=== PATIENT | female | born 1990 | race Caucasian/White ===

== ENCOUNTER → 2016-07-27 | Outpatient (CLI) | payer BC ==
[~2016-07-27] MED LIST: MULT-806 PO
--- NOTE | 2016-07-27 16:45 | DI ---
Indication: ITS.REASON: Z34.90 NORMAL PREG. PROCEDURE: US OB COMPLETE >/= 14WKS: Encounter: Initial Age by first ultrasound is 18 weeks and 3 days based on an VANDANA of December 25, 2016. Comparison: May 20, 2016 PROCEDURE: US OB COMPLETE >/= 14WKS: Technique: Grayscale and color Doppler transabdominal sonographic imaging was performed. Findings: There is a single living intrauterine gestation in breech lie. Placenta is anterior without previa. Quantity of amniotic fluid is normal. The cervix is normal length and closed. Amniotic fluid index is normal at 13.4 cm. Largest vertical pocket in the right upper quadrant is 5.5 cm. Survey of anatomy, including lateral ventricles, cavum septum, posterior fossa, spine, four chamber view of the heart, stomach, kidneys, bladder, and three vessel orthotopic cord insertion are normal. In addition, all long bones in both upper and lower extremities and both hands and feet are present. Coronal view of the nose and lips and sagittal facial profile are unremarkable. heart beats regularly at 138 beats per minute. biometry: Biparietal diameter: 4.33 cm 19 weeks and 1 days (79 percentile). Head circumference: 15.63 cm 18 weeks and 4 days (49 percentile). Abdominal circumference: 13.42 cm 19 weeks and 0 days (63 percentile). Femur Length: 2.80 cm 18 weeks and 4 days (50 percentile). biometrics are internally concordant and consistent with an estimated gestational age of 18 weeks and 6 days. Estimated weight is 255 grams (65 percentile by first ultrasound and 38 percentile by AUA method). Impression: 1. Single living intrauterine gestation with age by first ultrasound of 18 weeks and 3 days. This is based on an VANDANA of December 25, 2016. 2. Best estimate of gestational age on today's exam is 18 weeks and 6 days, correlating to an VANDANA of December 22, 2016. 3. Normal survey of anatomy. .
== END ==
LOC: IMA 15:16
PROVIDERS: ATTEND Family Medicine
DX: Z34.90 Encounter for supervision of normal pregnancy, unspecified, unspecified trimester (principal)

== ENCOUNTER 2016-12-08 06:00 | Inpatient (IN) ==
[2016-12-08] MEDS ORDERED: CALCIUM CARBONATE Chewable 500mg TABLET PO PRN ×2 (06:07→20:33)
[2016-12-08] MEDS ORDERED: ACETAMINOPHEN 500 MG TABLET PO PRN ×2 (06:07→20:33)
[2016-12-08] MEDS ORDERED: OXYTOCIN DRIP 30 UNIT/500 ML ML IV PRN (06:07)
[2016-12-08] MEDS ORDERED: METHYLERGONOVINE 0.2 MG/ML INJECTION IM PRN (06:07)
[2016-12-08] MEDS ORDERED: LIDOCAINE 1% (10mg/ml) 2mL INJ PF SDV ID PRN (06:07)
[2016-12-08] MEDS ORDERED: CARBOPROST 250 MCG/ML INJECTION IM PRN (06:07)
[2016-12-08] MEDS ORDERED: MAG-AL + SIM ORAL LIQUID 30ml PO PRN (06:07)
[2016-12-08] MEDS: D5LR 1,000 ML IV PRN ×2 (06:46→19:27)
[2016-12-08 06:49] VITALS: BMI 37.0
--- NOTE | 2016-12-08 07:51 | Anesthesia Preoperative Report ---
Anesthesia Epidural/Spinal Rec - Date and Time Date: 12/08/16 Preoperative Diagnosis: G1, P0, 37+4 Procedure: Labor Epidural Plan: Epidural - Vital Signs Vital Signs: Temperature 98.1 F 12/08/16 06:41 Pulse Rate 92 12/08/16 06:41 Respiratory Rate 18 12/08/16 06:41 Blood Pressure 126/84 12/08/16 06:41 Pulse Oximetry 98 12/08/16 06:41 NPO since: mn /Para: P:0 Heart Rate: 135 - Medictaions & Allergies Inpatient Medications: Current Medications Acetaminophen (Tylenol) 500 - 1,000 mg PO Q4H PRN PRN Reason: Pain Al Hydroxide/Mg Hydroxide (Maalox Plus) 30 ml PO Q3H PRN PRN Reason: Indigestion Calcium Carbonate (Tums) 500 - 1,000 mg PO Q2H PRN PRN Reason: Indigestion Carboprost Tromethamine (Hemabate) 250 mcg IM O PRN PRN Reason: .Downtime Oxytocin (Pitocin Drip) 30 unit in 500 mls @ 2 mls/hr IV .Q24H PRN; Protocol PRN Reason: Induction/Augmentation Dextrose/Lactated Ringer's (Dextrose 5%-Lactated Ringers) 1,000 mls @ 125 mls/ hr IV .Q8H PRN PRN Reason: Labor Lidocaine HCl (Xylocaine-Mpf 1% Vial) 0.2 mg ID O PRN PRN Reason: IV Start Methylergonovine Maleate (Methergine) 0.2 mg IM O PRN Misoprostol (Cytotec) 800 mcg RI ONCE PRN Allergies/Adverse Reactions: Allergies Allergy/AdvReac Type Severity Reaction Status Date / Time No Known Allergies Allergy Unknown Verified 01/18/08 08:19 - Home Medications Home Medications: Home Medications Medication Instructions Recorded Confirmed Type Benadryl 11/29/16 History Vitamins 11/29/16 History Tylenol 11/29/16 History - Medical History Other History: Reports: Other (wakes up emotional ) - Surgical History Surgery/Treatment: REPORT: Other (cystoscopy ) Anesthesia Reactions: Confusion Hx Family Anesthesia Reaction: No - Pertinent Findings Lab Data: CBC and BMP 12/08/16 06:26 - Physical Exam Respiratory Exam: lungs clear, bilateral breath sounds equal Cardiovascular Exam: regular rate and rhythm - Airway Assessment Mallampati Score: IV TMD: 2 Fingerbreadths Neck Extension: fair Overall Assessment: may be difficult intubation - ASA ASA Score: 2 - Discussion Discussion: Discussed risks/options/alternatives of anesthesia and questions answered. Patient consents. Nursing pain assessment noted. Attestation Statement: Prior to the delivery of any anesthetic medication, I examined the patient, developed the plan, obtained the patient's consent and discussed the risk and benefits of the procedure with the patient/guardian.
[2016-12-08] MEDS ORDERED: LR 1,000 ML IV SCH (08:30)
[2016-12-08] MEDS: LR 1,000 ML IV PRN ×2 (09:55→11:56)
[2016-12-08] MEDS ORDERED: ROPIVACAINE 1% 10MG/ML INJ 200 MG, SUFentanil 50 MCG in NS 100 ML EPI PRN (10:53)
[2016-12-08] MEDS ORDERED: DiphenhydrAMINE 50 MG/ML INJECTION IVP PRN (10:53)
[2016-12-08] MEDS ORDERED: ONDANSETRON 4 MG/2 ML INJECTION IVP PRN ×2 (10:53→18:04)
[2016-12-08] MEDS ORDERED: NALOXONE 0.4 MG/ML INJECTION IVP PRN (10:53)
[2016-12-08] MEDS ORDERED: LR 1,000 ML IV PRN (11:05)
[2016-12-08] MEDS ORDERED: FAMOTIDINE PB 20 MG/50 ML BAG IV ONE (17:19)
[2016-12-08] MEDS ORDERED: CITRIC ACID/SODIUM CITRATE 30ml PO ONE (17:19)
[2016-12-08] MEDS ORDERED: CEFAZOLIN PREMIX (MC ONLY) 2 GM/50 ML BAG IV ONE (17:19)
[2016-12-08] MEDS ORDERED: MORPHINE SULFATE PF 5mg/10ml INJ (Duramorph) ONE (17:27)
[2016-12-08] MEDS ORDERED: FentaNYL 100 MCG/2 ML INJECTION ONE (17:27)
[2016-12-08] MEDS ORDERED: LIDOCAINE 2%/EPI 1:200,000 20ml SDV PF ONE ×2 (17:29→17:31)
[2016-12-08] MEDS ORDERED: EPHEDRINE 50mg/ml INJECTION ONE (17:31)
[2016-12-08] MEDS ORDERED: OXYTOCIN 10 UNIT/ML INJECTION ONE (17:32)
[2016-12-08] MEDS ORDERED: ONDANSETRON 4 MG/2 ML INJECTION ONE (17:47)
[2016-12-08] MEDS ORDERED: KETAMINE 500 MG/10 ML INJECTION ONE (17:49)
[2016-12-08] MEDS ORDERED: NALBUPHINE 10 MG/ML INJECTION IVP PRN (18:04)
[2016-12-08] MEDS ORDERED: NALOXONE 2 MG/2 ML INJECTION PFS IVP PRN (18:04)
--- NOTE | 2016-12-08 18:04 | Anesthesia Preoperative Report ---
Anesthesia Preoperative Record - Date and Time Date: 12/08/16 Preoperative Diagnosis: failure to progress Proposed Procedure: emergency csection NPO Since Date: 12/07/16 NPO Since Time: 23:00 Allergies/Adverse Reactions: Allergies Allergy/AdvReac Type Severity Reaction Status Date / Time No Known Allergies Allergy Unknown Verified 01/18/08 08:19 - Vital Signs Vital Signs: Temperature 98.1 F 12/08/16 06:41 Pulse Rate 92 12/08/16 06:41 Respiratory Rate 18 12/08/16 06:41 Blood Pressure 126/84 12/08/16 06:41 Pulse Oximetry 98 12/08/16 06:41 Height and Weight: Height 1.52 m Weight 86.001 kg Body Mass Index 37.0 - Medications Inpatient Medications: Current Medications Acetaminophen (Tylenol) 500 - 1,000 mg PO Q4H PRN PRN Reason: Pain Al Hydroxide/Mg Hydroxide (Maalox Plus) 30 ml PO Q3H PRN PRN Reason: Indigestion Calcium Carbonate (Tums) 500 - 1,000 mg PO Q2H PRN PRN Reason: Indigestion Carboprost Tromethamine (Hemabate) 250 mcg IM O PRN PRN Reason: .Downtime Diphenhydramine HCl (Benadryl) 25 - 50 mg IVP Q3H PRN PRN Reason: Itching Oxytocin (Pitocin Drip) 30 unit in 500 mls @ 2 mls/hr IV .Q24H PRN; Protocol PRN Reason: Induction/Augmentation Last Admin: 12/08/16 06:46 Dose: 2 mls/hr Dextrose/Lactated Ringer's (Dextrose 5%-Lactated Ringers) 1,000 mls @ 125 mls/ hr IV .Q8H PRN PRN Reason: Labor Last Admin: 12/08/16 06:46 Dose: 125 mls/hr Ropivacaine 200 mg/ Sufentanil Citrate 50 mcg/ Sodium Chloride 121 mls @ 8 mls/ hr EPI PRN PRN PRN Reason: Protocol Lactated Ringer's (Lactated Ringers) 1,000 mls @ 999 mls/hr IV .Q1H1M PRN PRN Reason: as directed Last Admin: 12/08/16 11:56 Dose: 999 mls/hr Lidocaine HCl (Xylocaine-Mpf 1% Vial) 0.2 mg ID O PRN PRN Reason: IV Start Methylergonovine Maleate (Methergine) 0.2 mg IM O PRN Misoprostol (Cytotec) 800 mcg NE ONCE PRN Naloxone HCl (Narcan) 0.1 mg IVP Q2M PRN PRN Reason: Respiratory distress Ondansetron HCl (Zofran) 4 mg IVP Q6H PRN PRN Reason: Nausea &/or vomiting Home Medications: Home Medications Medication Instructions Recorded Confirmed Type Benadryl 11/29/16 History Vitamins 11/29/16 History Tylenol 11/29/16 History - Surgical History Surgery/Treatment: REPORT: Other (cystoscopy ) - Social History Smoking Status: Never smoker - Pertinent Findings Laboratory: CBC and BMP 12/08/16 06:26 - Physical Exam Respiratory Exam: Present: lungs clear, bilateral breath sounds equal Cardiovascular Exam: Present: regular rate and rhythm - Airway Assessment Mallampati Score: IV TMD: 2 Fingerbreadths Neck Extension: fair Overall Assessment: may be difficult intubation - ASA ASA Score: 2 - Plan Regional/Trunk Block: Epidural (labor converted to surgical ) - Discussion Discussion: Discussed risks/options/alternatives of anesthesia and questions answered. Patient consents. Nursing pain assessment noted. Attestation Statement: Prior to the delivery of any anesthetic medication, I examined the patient, developed the plan, obtained the patient's consent and discussed the risk and benefits of the procedure with the patient/guardian.
--- NOTE | 2016-12-08 19:49 | Anesthesia Postoperative Note ---
- Date and Time Date: 12/08/16 Time: 19:10 - Status Patient Participated in Evaluation: Patient Participated in Person Vital Signs: Temperature 98.1 F 12/08/16 06:41 Pulse Rate 92 12/08/16 06:41 Respiratory Rate 18 12/08/16 06:41 Blood Pressure 126/84 12/08/16 06:41 Pulse Oximetry 98 12/08/16 06:41 Respiratory Function: Airway Patent Cardiovascular Function: Regular Pulse EKG Rhythm: Normal Sinus Rhythm Mental Status: Alert and Oriented Pain Intensity: 2 Hydration: IV Infusing Complications During Recover: None Apparent - Follow-Up Instructions Instructions: Per Surgeon
[2016-12-08] MEDS ORDERED: D5LR 1,000 ML IV SCH (20:33)
[2016-12-08] MEDS ORDERED: METOCLOPRAMIDE 10mg/2ml INJECTION IVP PRN (20:33)
[2016-12-08] MEDS ORDERED: DiphenhydrAMINE 25 MG CAPSULE PO PRN (20:33)
[2016-12-08] MEDS ORDERED: OXYTOCIN DRIP 30 UNIT/500 ML ML IV SCH (20:33)
[2016-12-08] MEDS ORDERED: SIMETHICONE 80 MG CHEWABLE TABLET PO PRN (20:33)
[2016-12-08] MEDS ORDERED: HYDROCORTISONE 2.5% CREAM 30gm RECTALLY PRN (20:33)
[2016-12-09] MEDS: HYDROCODONE/APAP 5mg/325mg TABLET PO PRN ×5 (00:43→22:49)
[2016-12-09] MEDS: IBUPROFEN 800 MG TABLET PO PRN ×3 (00:43→18:16)
[2016-12-09] MEDS ORDERED: DiphenhydrAMINE 50 MG/ML INJECTION IVP PRN (09:06)
[2016-12-09] MEDS ORDERED: ONDANSETRON 4 MG/2 ML INJECTION IVP PRN (09:06)
[2016-12-09] MEDS ORDERED: NALOXONE 2 MG/2 ML INJECTION PFS IVP PRN (09:06)
[2016-12-09] MEDS ORDERED: NALBUPHINE 10 MG/ML INJECTION IVP PRN (09:06)
--- NOTE | 2016-12-09 09:32 | Operative Note ---
DATE OF SURGERY: 12/08/2016 PREOPERATIVE DIAGNOSIS 1. 26-year-old female G1, P0 at 37.4 weeks gestational age. 2. Pitocin induction for severe and worsening PUPP'S of . 3. Artificial rupture of membranes. 4. Epidural anesthesia. 5. Arrest of descent after pushing for 135 minutes. POSTOPERATIVE DIAGNOSIS 1. Occiput posterior presentation. 2. Nuchal cord x1. 3. Male , Apgars, 3928 grams (8 pounds 11 ounces), (Yuridia Ledezma). PROCEDURES: Primary low transverse section. EBL: 800 mL ANESTHESIA: Epidural catheter dosing by Elliott Dorantes CRNA SURGEON: Virgilio Scales MD GROUP UNDERWRITER: Giancarlo Allison, Machine Applicator Cementer COMPLICATIONS Infant never dropped below 0 station after pushing for 2 hours and 15 minutes, so we moved towards the . Infant was in the straight OP presentation upon entering the and there was a nuchal cord x1. Infant's head was wedged down in the pelvis and there was a slight delay in getting the head brought up and out. DESCRIPTION OF PROCEDURE After adequate epidural anesthesia, the patient was prepped and draped in the left lateral decubitus position. A Pfannenstiel skin incision was made with a sharp knife and carried down to the fascia, which was incised transversely with the Silva scissors. The rectus fascia was bluntly and sharply dissected off the rectus muscle. The rectus muscle was divided, and the peritoneum was isolated, elevated, entered with the Metzenbaum scissors and extended cephalad and caudad. The bladder blade was then inserted. The lower vesicouterine fold of the peritoneum was isolated and incised transversely. The bladder was bluntly dissected off the lower uterine segment. The bladder blade was reinserted. Then using a sharp knife, a transverse incision was made in the lower uterine segment. This was extended with my fingers. Male was delivered from the vertex OP presentation. We had to rotate the head to OT to get it to elevate. Infant was bulb suctioned after delivery of the head and then again after delivery of the body. Cord was doubly clamped at a length and cut and the infant was received by Dr. Rhys Capps of Pediatrics. Placenta spontaneously removed anteriorly and was intact. The placenta was expressed manually and was intact. The uterus was then allowed to fall upon the external abdominal wall. The endometrial cavity was cleansed using moist lap sponges. The uterus was closed using 0-Monocryl in a running locking fashion. Hemostasis was confirmed. The bladder flap was then reapproximated with the visceral peritoneum using 3-0 Vicryl in a running nonlocking fashion. The posterior cul-de-sac was cleansed of old blood clots and the tubes and ovaries were examined and found to be normal in size, shape and appearance. After hemostasis was again confirmed, the uterus was then carefully returned to the abdominal cavity. The abdomen was then closed in layers. The peritoneum was closed using 2-0 Vicryl in running nonlocking fashion. The fascia was closed using 0-Vicryl in a running nonlocking fashion bilaterally from the lateral aspects medially. Hemostasis was achieved with the subcutaneous tissue and then the skin was closed with 4-0 undyed Vicryl in a subcuticular manner. The patient tolerated the procedure well and went to the recovery room in stable condition. Pad, sponge and needle counts were correct and urine postop was clear and free flowing. ROMELD
[2016-12-09] MEDS: SIMETHICONE 80 MG CHEWABLE TABLET PO SCH ×3 (10:25→22:50)
[2016-12-09] MEDS: DOCUSATE CALCIUM 240 MG CAPSULE PO SCH (10:25)
--- NOTE | 2016-12-09 10:32 | OB/GYN Progress Note ---
OB-Progress Note Free Text - Date Date: 12/09/16 - Progress Note Progress Note: vss af hgb noted disc swelling cont routine pp care q&a-krb
--- NOTE | 2016-12-09 19:25 | OB/GYN Progress Note ---
OB-Progress Note Free Text - Date Date: 12/09/16 - Progress Note Progress Note: vss af doing well q&a-krb
[2016-12-10] MEDS: HYDROCODONE/APAP 5mg/325mg TABLET PO PRN ×3 (05:10→14:02)
[2016-12-10 07:38] VITALS: TEMP 97.9; O2SAT 100
[2016-12-10] MEDS: DOCUSATE CALCIUM 240 MG CAPSULE PO SCH (09:47)
--- NOTE | 2016-12-10 10:17 | OB/GYN Progress Note ---
OB-PP Progress Note - General PPD2 POD:: POD2 Maternal Group B Strep: Negative Maternal blood type: A+ Maternal Rubella Status: Immune - Subjective Date: 12/10/16 Lochia: Minimal Pain: contolled Voiding: voiding - Objective Vital Signs: Last Vital Signs Temp 97.9 F 12/10/16 06:00 Pulse 108 H 12/10/16 06:00 Resp 17 12/10/16 06:00 BP 130/83 12/10/16 06:00 Pulse Ox 100 12/10/16 06:00 General: alert and oriented Respiratory: non-labored Abdomen: fundus firm Incision: normal Extremities: non-tender Side: bilateral Site: ankle, foot Edema Degree: 2+ - Assessment Assessment: SP, Primary C/S - Plan Plan: routine care, discharge home
--- NOTE | 2016-12-10 10:22 | Discharge Instructions ---
Discharge Plan - Med Rec/Dispo Referrals/Follow Up: Virgilio Scales MD [Physician] - Prescriptions: New Hydrocodone/APAP 5/325 [Topping 5/325] 1 - 2 tab PO Q4H PRN #30 tab PRN Reason: Pain Ibuprofen [Motrin] 800 mg PO Q8H PRN #30 tab PRN Reason: Pain Continue Vitamins Benadryl Discontinued Tylenol - Disposition 01 Discharged Home, Self-Care
[2016-12-10 12:28] VITALS: BP 133/80; PULSE 58; RESP 16
[2016-12-10] MEDS: IBUPROFEN 800 MG TABLET PO PRN (14:01)
[2016-12-10] MEDS: SIMETHICONE 80 MG CHEWABLE TABLET PO SCH (14:03)
== END 2016-12-10 14:45 | disposition home or self-care (01) | DRG 766 ==
LOC: MC 06:01
PROVIDERS: ADMIT Obstetrics & Gynecology; ATTEND Obstetrics & Gynecology